=== PATIENT | male | born 1990 | race Caucasian/White ===

== ENCOUNTER 2018-04-24 01:45 | Emergency (ER) | payer MEDICAID, OTHER ==
[~2018-04-24] VITALS: Wt 130.0 kg
[~2018-04-24 01:45] MED LIST: ONDA4TAB35 PO
[2018-04-24 01:46] VITALS: BP_DIAS 73; Wt 130.0 kg
[2018-04-24] MEDS ORDERED: ONDANSETRON 4 MG INJ IM STA (02:02)
[2018-04-24 03:14] VITALS: BP_SYST 78; PULSE 81; RESP 16
--- NOTE | 2018-04-24 03:35 | ERD ---
ER Documentation Chief Complaint Chief Complaint ETOH INTOXICATION HPI This 27-year-old male who presents for evaluation of alcohol intoxication and vomiting. He presents with a friend, he was celebrating New Year's today, and had several shots of liquor, he is otherwise healthy, he had no head trauma, denies loss of consciousness. ROS All systems reviewed and are negative except as per history of present illness. 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 Allergies Allergies: Coded Allergies: No Known Allergies (Unverified Adverse Reaction, Unknown, 04/24/18) PMhx/Soc Medical and Surgical Hx: pt denies Medical Hx, pt denies Surgical Hx History of Surgery: No Anesthesia Reaction: No Hx Neurological Disorder: No Hx Respiratory Disorders: No Hx Cardiac Disorders: No Hx Psychiatric Problems: No Hx Miscellaneous Medical Probl: No Hx Alcohol Use: No Hx Substance Use: No Hx Tobacco Use: No Smoking Status: Never smoker Physical Exam Vitals Vital Signs Date Temp Pulse Resp B/P (MAP) Pulse Ox O2 O2 Flow FiO2 Time Delivery Rate 04/24/18 98.0 81 16 78/ 99 Room Air 03:14 04/24/18 99.2 107 18 127/73 97 01:46 (91) Physical Exam Const: No acute distress Head: Atraumatic Eyes: Normal Conjunctiva ENT: Normal External Ears, Nose and Mouth. Neck: Full range of motion. No meningismus. Resp: Clear to auscultation bilaterally Cardio: Regular rate and rhythm, no murmurs Abd: Soft, non tender, non distended. Normal bowel sounds Skin: No petechiae or rashes Back: No midline or flank tenderness Ext: No cyanosis, or edema Neur: Awake and alert Psych: Normal Mood and Affect Results 24 hrs Current Medications Medications Dose Sig/Aryan Start Time Status Last (Trade) Ordered Route PRN Stop Time Admin Dose Reason Admin Ondansetron 8 mg ONCE STAT 04/24/18 DC 04/24/18 HCl (Zofran IM 02:02 04/24/18 02:16 Inj) 02:04 Procedures/MDM Is a 27-year-old male who presents for evaluation of alcohol intoxication, on exam he had no evidence of head trauma, abdomen was soft and nontender, given IM Zofran, and experienced improvement in his nausea, he felt comfortable with discharge plan of care, he will be discharged with his friend, return precautions given at discharge patient was in no acute distress. Departure Diagnosis: Primary Impression: Nausea with vomiting, unspecified Vomiting type: unspecified Vomiting Intractability: unspecified Qualified Codes: R11.2 - Nausea with vomiting, unspecified Additional Impression: Alcoholic intoxication Complication of substance-induced condition: uncomplicated Qualified Codes: F10.920 - Alcohol use, unspecified with intoxication, uncomplicated Condition: Stable Patient Instructions: Alcohol Intoxication Additional Instructions: Call your primary care doctor TOMORROW for an appointment during the next 1 WEEK.Tell the rolling machine operator that you were referred from this facility.See the doctor sooner or return here if your condition worsens before your appointment time. LEAH VO MD Apr 24, 2018 03:35
== END 2018-04-24 03:14 | disposition home or self-care (01) ==
LOC: E/R 01:45
DX: F10.920 Alcohol use, unspecified with intoxication, uncomplicated (principal)
CPT/HCPCS: 96372; J2405; Z7502